=== PATIENT | female | born 2000 | race Caucasian/White ===

== ENCOUNTER 2025-09-15 15:37 | Day surgery (SDC) | payer OTHER ==
[2025-09-15 16:13] VITALS: BMI 35.5
[2025-09-15] MEDS ORDERED: hydrALAZINE 20 MG/ML VIAL SLOW IVP PRN (16:50)
== END 2025-09-15 18:30 | disposition home or self-care (01) ==
LOC: CSHLD/OP 15:37
PROVIDERS: ATTEND Family Medicine
DX: O36.8130 Decreased fetal movements, third trimester, not applicable or unspecified (principal); O12.03 Gestational edema, third trimester; Z3A.36 36 weeks gestation of pregnancy; Z88.1 Allergy status to other antibiotic agents
CPT/HCPCS: 76819

== ENCOUNTER 2025-09-26 09:53 | Inpatient (IN) | payer OTHER ==
[2025-09-26 10:19] VITALS: BMI 36.1
[2025-09-26] MEDS ORDERED: hydrALAZINE 20 MG/ML VIAL SLOW IVP PRN ×2 (10:39→21:13)
[2025-09-26 11:33] LABS: Glucose, Urine (Dipstick) Normal (Negative); Leukocyte Negative (Negative); Protein, Urine (Dipstick) 15 mg/dl (Neg-Trace); Specific Gravity, Urine 1.010 (1.005-1.030)
[2025-09-26 11:39] LABS: CAUTI Indications for Culture Pregnancy; RBC/HPF Greater than 50 HPF (0-3); WBC/HPF None Seen HPF (0-3)
[2025-09-26 11:40] LABS: Bacteria/HPF Rare-Few HPF (None Seen)
[2025-09-26 11:41] LABS: Urine Culture Reflex Yes Yes
[2025-09-26 12:32] LABS: #Basophils Less than 0.03 10x3/uL (0.0-0.2); #Eosinophils 0.07 10x3/uL (0.0-0.5); #Monocytes 0.76 10x3/uL (0.0-1.1); #Neutrophils 8.47 10x3/uL (1.5-8.4); %Basophils 0.2 % (0.0-2.0); %Eosinophils 0.6 % (0.0-6.0); %Lymphocytes 14.2 % (18.0-47.0); %Monocytes 6.9 % (0.0-10.0); %Neutrophils 77.2 % (40.0-75.0); Hematocrit 31.8 % (34.9-44.5); Hemoglobin 10.6 g/dL (12.0-15.5); Mean Corpuscular Hemoglobin 26.9 pg (27.0-33.0); Mean Corpuscular Volume 80.7 fL (81.6-98.3); Platelet Count 175 10x3/uL (150-450); Red Blood Cell (RBC) Count 3.94 10x6/uL (3.90-5.03); White Blood Cell (WBC) Count 10.98 10x3/uL (3.5-10.5)
[2025-09-26 12:42] LABS: ALT (SGPT) 12 U/L (Less than 34); AST (SGOT) 16 U/L (11-34); Albumin 3.2 g/dL (3.1-4.5); Alkaline Phosphatase 116 U/L (40-110); Anion Gap 16 mmol/L (10-20); BUN (Urea Nitrogen) 6 mg/dL (7.0-18.7); Bilirubin, Total 0.3 mg/dL (0.3-1.2); Calc. Creatinine Clearance 221 mL/min (70-130); Calcium 8.7 mg/dL (7.8-10.44); Carbon Dioxide 20 mmol/L (22-29); Chloride 108 mmol/L (98-107); Globulin 3.1 g/dL (2.4-3.5); Glucose 68 mg/dL (70-105); Potassium 3.8 mmol/L (3.5-5.1); Sodium 140 mmol/L (136-145)
[2025-09-26] MEDS: cefTRIAXone\\ROCEPHIN 1 GM in Sodium Chloride 0.9% 100 ML IVPB SCH (15:12)
[2025-09-26] MEDS ORDERED: Ondansetron PF 4 MG/2 ML Vial IVP PRN ×3 (16:59→21:13)
[2025-09-26] MEDS ORDERED: Meperidine HCl/PF 25 MG (1 mL) VIAL SLOW IVP PRN (16:59)
[2025-09-26] MEDS ORDERED: Ketorolac Tromethamine 30 MG (1 mL) VIAL IVP PRN (16:59)
[2025-09-26] MEDS ORDERED: Communication Order-Pharmacy FS SCH (17:00)
[2025-09-26] MEDS ORDERED: Ketorolac Tromethamine 30 MG (1 mL) VIAL IVP SCH (17:00)
[2025-09-26] MEDS ORDERED: Ondansetron PF 4 MG/2 ML Vial ONE (17:04)
[2025-09-26] MEDS ORDERED: Oxytocin 10 UNITS/ML VIAL ONE (17:05)
[2025-09-26] MEDS: CEFAZOLIN 2 GM VIAL ONE (17:10)
[2025-09-26] MEDS ORDERED: Oxytocin 30 units/NS 500 ML 500 ML IV SCH (20:30)
[2025-09-26] MEDS: diphenhydrAMINE 50 MG/ML VIAL IVP PRN (20:44)
[2025-09-26] MEDS ORDERED: Bisacodyl 10 MG SUPP PR PRN (21:13)
[2025-09-26] MEDS ORDERED: diphenhydrAMINE 25 MG CAP PO PRN (21:13)
[2025-09-26] MEDS ORDERED: Lanolin Ointment 7 GM TUBE TOP PRN (21:13)
[2025-09-26] MEDS: Dexamethasone 10 MG/ML VIAL ONE (21:57)
[2025-09-26] MEDS: Penicillin G Potassium 5 MILL.UNITS VIAL ONE (21:57)
[2025-09-26] MEDS: PHENYLEPHRINE-NS 100 MCG/ML 10 ML SYRINGE ONE (21:59)
[2025-09-26 23:10] LABS: Syphilis Antibody Index 0.04 S/CO (<1.00 Non-Reactive)
[2025-09-27] MEDS: Ketorolac Tromethamine 30 MG (1 mL) VIAL IVP SCH (00:20)
[2025-09-27 00:24] LABS: Hep B Surf Ag - L&D Non-Reactive S/CO (NonReactive)
[2025-09-27] MEDS: Ketorolac Tromethamine 30 MG (1 mL) VIAL ONE (03:09)
[2025-09-27] MEDS: Ferrous Sulfate 325 MG TAB PO SCH ×2 (03:10→08:58)
[2025-09-27 03:48] LABS: Hematocrit 26.2 % (34.9-44.5); Hemoglobin 8.6 g/dL (12.0-15.5); Mean Corpuscular Hemoglobin 26.7 pg (27.0-33.0); Mean Corpuscular Volume 81.4 fL (81.6-98.3); Platelet Count 181 10x3/uL (150-450); Red Blood Cell (RBC) Count 3.22 10x6/uL (3.90-5.03); White Blood Cell (WBC) Count 13.40 10x3/uL (3.5-10.5)
[2025-09-27] MEDS ORDERED: Meperidine HCl/PF 25 MG (1 mL) VIAL IM PRN (05:00)
[2025-09-27] MEDS: Simethicone Chewable 80 MG TAB PO PRN (05:48)
[2025-09-27] MEDS: HYDROcodone/Acetaminophen 5/325 mg Tablet PO PRN (08:56)
[2025-09-27] MEDS: Ibuprofen 800 MG TAB PO SCH (13:38)
[2025-09-28] MEDS: HYDROcodone/Acetaminophen 5/325 mg Tablet PO PRN (04:31)
[2025-09-29 09:50] VITALS: BP 110/70; TEMP 99.6
== END 2025-09-29 11:30 | disposition home or self-care (01) | DRG 788 ==
LOC: CSHLD/OP 09:53 → CSHLD 16:34 → CSHPP 20:55
PROVIDERS: ADMIT Family Medicine; ATTEND Family Medicine
PROC: 10D00Z1 Extraction of Products of Conception, Low, Open Approach (ICD-10-PCS; principal; 2025-09-26)
PROC: 4A1HXCZ Monitoring of Products of Conception, Cardiac Rate, External Approach (ICD-10-PCS; 2025-09-26)
PROC: 3E03329 Introduction of Other Anti-infective into Peripheral Vein, Percutaneous Approach (ICD-10-PCS; 2025-09-26)
DX: O34.211 Maternal care for low transverse scar from previous cesarean delivery (principal); Z3A.37 37 weeks gestation of pregnancy; Z37.0 Single live birth
CPT/HCPCS: 36415; 51702; 76770; 80053; 81001; 85025; 85027; 86780; 86850; 86900; 86901; 87086; 87340; 99285; C1889; J0696; J1100; J1200; J1885; J2270; J2274; J2405; J2540; J2590